=== PATIENT | male | born 1955 | race Caucasian/White ===

== ENCOUNTER 2017-02-24 17:20 | Emergency (ER) | payer OTHER, MEDICARE ==
[2017-02-24 17:30] VITALS: BP 128/81
--- NOTE | 2017-02-24 18:15 | RAD ---
Scrotal ultrasound 02/24/2017 CLINICAL HISTORY: Right scrotal pain for a few days with swelling. TECHNIQUE: Using a combination of real-time ultrasound imaging and color-flow and pulse Doppler imaging techniques, duplex evaluation of the scrotal sac and its contents was performed. Multiple images were obtained. FINDINGS: Both testicles are within normal limits in size and echogenicity. The right testicle measures 3.5 x 3.2 x 2.7 cm in longitudinal, transverse, and AP dimensions. The left testicle measures 3.2 x 2.2 x 2.6 cm in size. No focal abnormality of either testicle is seen. Normal color flow and pulse doppler imaging to both testicles is noted. The right epididymis is mildly enlarged. Increased color flow Doppler to the right epididymis is seen. These findings most likely reflect epididymitis. No abnormality of the left epididymis is noted. There are small to moderate-sized hydroceles, right greater than left. The right-sided hydrocele has septations within it. No varicocele is noted. Scrotal wall thickening is seen. No abnormal fluid collection is noted to suggest evidence of an abscess. IMPRESSION: 1. Findings consistent with right epididymitis. 2. Small to moderate-sized bilateral hydroceles, right greater than left. Electronically signed by: Jonah Treadwell MD (02/24/2017 6:12 PM) [facility]
[2017-02-24] MEDS ORDERED: LEVO500T8 PO (18:40)
[2017-02-24] MEDS ORDERED: NAPR275T59 PO (18:40)
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
[2017-02-24 19:10] LABS: BILIRUBIN,URINE NEG (NEG); CLARITY,URINE TURBID; COLOR,URINE YELLOW; GLUCOSE,URINE 500 mg/dL (NEG); NITRITE,URINE POS (NEG); UROBILINOGEN,URINE 1 mg/dL (0.2 mg/dL)
[2017-02-24 19:11] LABS: BACTERIA,URINE MANY /HPF (0-FEW); SQUAMOUS EPITHELIAL CELL,UR FEW /LPF; WBC,URINE >40 /HPF (0-4)
== END 2017-02-24 18:53 | disposition home or self-care (01) ==
LOC: ER 17:20
DX: N45.1 Epididymitis (principal); E11.9 Type 2 diabetes mellitus without complications; E78.5 Hyperlipidemia, unspecified; I10 Essential (primary) hypertension; Z86.73 Personal history of transient ischemic attack (TIA), and cerebral infarction without residual deficits
CPT/HCPCS: 76870; 81001; 87086; 99285-25